=== PATIENT | male | born 1990 | race Two or more races ===

== ENCOUNTER 2021-05-08 08:48 | Emergency (ER) | payer SELFPAY ==
[~2021-05-08] VITALS: Ht 177.8 cm; Wt 68.0 kg
[2021-05-08 10:00] VITALS: BP 126/85
[2021-05-08] MEDS ORDERED: KETOROLAC TROMETH 60MG/2ML VIAL IM ONE (10:00)
== END 2021-05-08 09:55 | disposition home or self-care (01) ==
LOC: ER 08:48
DX: S09.90XA Unspecified injury of head, initial encounter (principal); M25.572 Pain in left ankle and joints of left foot; F12.10 Cannabis abuse, uncomplicated; V86.56XA Driver of dirt bike or motor/cross bike injured in nontraffic accident, initial encounter; Y93.89 Activity, other specified; Y92.89 Other specified places as the place of occurrence of the external cause; Y99.8 Other external cause status
CPT/HCPCS: 29515; 70450; 73610; 96372; 99284; J1885